=== PATIENT | male | born 1950 | race Caucasian/White ===

== ENCOUNTER 2019-03-05 13:53 | Emergency (ER) | payer MEDICARE, OTHER ==
[~2019-03-05] VITALS: Ht 170.2 cm; Wt 84.1 kg
[2019-03-05 14:00] VITALS: BP 163/88; TEMP 97.1
[2019-03-05] MEDS ORDERED: SPIRIVA RE2.5 MCG/Ac IH (14:21)
[2019-03-05] MEDS ORDERED: 00186-0370-20 IH (14:21)
[2019-03-05] MEDS ORDERED: ASPIRIN E.C. 8181 MG PO (14:22)
[2019-03-05] MEDS ORDERED: PROTONIX 40MG T40 MG PO (14:23)
[2019-03-05] MEDS ORDERED: DALIRESP500 MCG PO (14:23)
[2019-03-05] MEDS ORDERED: THEO-24 20200 MG/CAP PO (14:24)
[2019-03-05] MEDS ORDERED: MOBIC15 MG PO (14:25)
[2019-03-05] MEDS ORDERED: NORVASC 10MG10 MG PO (14:25)
[2019-03-05] MEDS ORDERED: ZEBETA10 MG PO (14:26)
[2019-03-05] MEDS ORDERED: CELEXA40 MG PO (14:27)
[2019-03-05] MEDS ORDERED: CEPHALEXIN500 M1 PO (15:41)
[2019-03-05] MEDS ORDERED: DOXYCYCLINE 10100 MG PO (15:41)
[2019-03-05] MEDS ORDERED: NAPROXEN 3375 MG/TAB PO (15:41)
[2019-03-05] MEDS ORDERED: NORCO 325 MG-51 TAB PO (15:41)
[2019-03-05 16:36] VITALS: PULSE 69
== END 2019-03-05 16:37 | disposition home or self-care (01) ==
LOC: COL.ER 13:53
DX: L03.114 Cellulitis of left upper limb (principal); J44.9 Chronic obstructive pulmonary disease, unspecified; I10 Essential (primary) hypertension; Z79.82 Long term (current) use of aspirin
CPT/HCPCS: J0690; J1170; J1885; J7030